=== PATIENT | female | born 1995 | race Caucasian/White ===

== ENCOUNTER 2019-05-05 21:44 | Inpatient (IN) | payer BC ==
[2019-05-05] MEDS ORDERED: HYDROcodone/Acetaminophen 5/325 mg Tablet PO PRN ×2 (22:10)
[2019-05-05] MEDS ORDERED: Lactated Ringer's 1,000 ML IV PRN (22:10)
[2019-05-05] MEDS ORDERED: Lidocaine 1% (PF) 30 ML VIAL SC PRN (22:10)
[2019-05-05] MEDS ORDERED: Methylergonovine 0.2 MG/ML VIAL IM PRN (22:10)
[2019-05-05] MEDS ORDERED: Promethazine HCl 25 MG/ML VIAL IM PRN (22:10)
[2019-05-05] MEDS ORDERED: Ondansetron PF 4 MG/2 ML Vial IVP PRN (22:10)
[2019-05-05] MEDS ORDERED: Ibuprofen 800 MG TAB PO PRN (22:10)
[2019-05-05 22:14] VITALS: BMI 24.6
[2019-05-05 22:36] LABS: Hemoglobin 12.7 g/dL (12.0-16.0); Mean Corpuscular HGB CONC 34.1 g/dL (32.0-36.0); Mean Corpuscular Hemoglobin 29.4 pg (27.0-31.0); Mean Corpuscular Volume 86.3 fL (78.0-98.0); Mean Platelet Volume 8.3 fL (7.4-10.4); Platelet Count 219 thou/uL (130-400); RBC Distribution Width 12.2 % (11.5-14.5); Red Blood Cell (RBC) Count 4.31 mill/uL (4.20-5.40); White Blood Cell (WBC) Count 17.2 thou/uL (4.8-10.8)
[2019-05-05 23:14] LABS: Syphilis Antibody Nonreactive (Nonreactive); Syphilis Antibody Index 0.06 S/CO (<1.00 Non-Reactive)
--- NOTE | 2019-05-05 23:27 | PDOC.LDHP ---
Labor and Delivery H&P Chief complaint: contractions HPI: Patient was seen in office today this morning and had memebrane sweep. She had some mild contractions following. they pickup up at 2pm. Around 9pm their house painter came to the house where she was erika every 2-3 minutes. They arrived to the hospital shortly there after. She denies LOF. has had some bloody show. Denies pain when she is not having contractions. Reporting and active fetus. Current gestational age (weeks): 39 (4 days) Due date: 05/08/19 Dating criteria: last menstrual period Grav: 2 Para: 1 OB History Details: in 2017. PCS for indication of failed second stage, OP presentation. macrosomia. post dates. #9lbs. 11oz G2 Current . Past Medical History: Variant of undetermined significance for charcot case tooth. ( Father is affected) Current medications: pre-josiah vitamins Previous surgical history: low tranverse CS Allergies/Adverse Reactions: Allergies Allergy/AdvReac Type Severity Reaction Status Date / Time No Known Allergies Allergy Unverified 06/25/17 11:38 Social history: none - Physical Exam Vital signs reviewed and normal: yes (135bpm baseline. +Accels. no declerations ) General: breathing through contractions Heart: RRR Lungs: nonlabored breathing Abdomen: gravid FHT: category 1 - Vaginal Exam cm dilated: 6 Effacement: 90% Station: -1 - OB Labs Blood type: A RH: positive Antibody Screen: negative HIV: negative RPR: negative HEPSAg: negative 1 hour GCT: unknown (Declined) GBS: negative Urine drug screen: negative Rubella: immune - Assessment L&D Assessment: term patient in labor - Plan Plan: admit to L&D (consulted with Dr. Uribe. he is aware of TOLAC and indication for PCS. Anesthesia was notified as well.)
[2019-05-05 23:50] LABS: HBSAg Index 0.25 S/CO (0-0.99); Hep B Surf Ag Non-Reactive S/CO (NonReactive)
[2019-05-06] MEDS: NS / Oxytocin 40 units/1000ml 1,000 ML IV PRN ×2 (03:05→04:31)
--- NOTE | 2019-05-06 03:19 | PDOC.OPDEL ---
OB Operative/Delivery Note Delivery Dr/Surgeon: Yonathan Bain Pre-Delivery Diagnosis: active labor Procedure/Post Delivery Dx: vaginal delivery after CS Weeks gestation: 39 Anesthesia: none - Findings A Sex: male Weight: 8 lb 9 oz - 1 min: 8 - 5 min: 9 - Additional Findings/Plan Placenta delivered: spontaneous Repaired Obstetrical Laceration: 2nd degree Estimated blood loss: 300mL Compilations/Other Findings: Nuchal cord, tight. OP presentation Post delivery plan: routine recovery
[2019-05-06] MEDS ORDERED: Bisacodyl 10 MG SUPP PR PRN (04:31)
[2019-05-06] MEDS ORDERED: NS / Oxytocin 40 units/1000ml 1,000 ML IV SCH (04:31)
[2019-05-06] MEDS ORDERED: HYDROcodone/Acetaminophen 5/325 mg Tablet PO PRN ×2 (04:31)
[2019-05-06] MEDS ORDERED: Methylergonovine 0.2 MG/ML VIAL IM PRN (04:31)
[2019-05-06] MEDS ORDERED: Milk Of Magnesia 30 ML UDCUP PO PRN (04:31)
[2019-05-06] MEDS ORDERED: Benzocaine-Menthol 82.5 ML CAN TOP PRN (04:31)
[2019-05-06] MEDS: Ferrous Sulfate 325 MG TAB PO SCH ×2 (08:54→17:35)
[2019-05-06] MEDS: Docusate Calcium (SURFAK) 240 MG CAP PO SCH ×2 (08:54→21:27)
[2019-05-06] MEDS: Prenatal Vitamin 1 TAB PO SCH (08:54)
[2019-05-06] MEDS ORDERED: Adacel (T-DAP) 0.5 ML SYRINGE IM ONE (09:00)
[2019-05-06] MEDS: Ibuprofen 800 MG TAB PO SCH ×2 (11:56→21:27)
[2019-05-07] MEDS: Ibuprofen 800 MG TAB PO SCH ×2 (05:26→14:34)
[2019-05-07] MEDS: Ferrous Sulfate 325 MG TAB PO SCH ×2 (07:52→16:30)
[2019-05-07 09:05] VITALS: BP 103/59; TEMP 97.9
[2019-05-07] MEDS: Prenatal Vitamin 1 TAB PO SCH (09:36)
[2019-05-07] MEDS: Docusate Calcium (SURFAK) 240 MG CAP PO SCH (09:36)
--- NOTE | 2019-05-07 14:39 | PDOC.PP ---
Post Progress Note Post Day #: 1 Subjective: Doing well. Much better at moving around now. PO intake tolerated: yes Flatus: yes Ambulation: yes Vital Signs (12 hours) Temp Pulse Resp BP Pulse Ox 05/07/19 08:00 97.9 F 75 14 103/59 L 98 Weight Weight 148 lb - Physical Examination General: NAD Cardiovascular: no m/r/g, RRR Respiratory: clear to auscultation bilaterally, non-labored breathing Abdominal: + bowel sounds, lochia (minimal) Fundus firm & at: -1 Extremities: negative homans (B) Perineum: Repair intact. edema is less Neurological: no gross focal deficits Psychiatric: A&Ox3 Result Diagrams: 05/05/19 22:25 Additional Labs: Post Labs Blood Type A POSITIVE 05/05/19 22:25 Hep Bs Antigen Non-Reactive S/CO (NonReactive) 05/05/19 22:25 (1) 39 weeks gestation of Code(s): Z3A.39 - 39 WEEKS GESTATION OF Status: Acute (2) Second degree perineal laceration Code(s): O70.1 - SECOND DEGREE PERINEAL LACERATION DURING DELIVERY Status: Acute (3) Vaginal after () Code(s): O34.219 - MATERNAL CARE FOR UNSP TYPE SCAR FROM PREVIOUS DEL Status: Acute - Assessment/Plan A: G2 Now P2 SP at 39 w 5 days. P: Routine care
== END 2019-05-07 17:15 | disposition home or self-care (01) | DRG 807 ==
LOC: L&D/OP 21:44 → L&D 23:22 → 3SW 05-06 06:29
PROVIDERS: ADMIT Obstetrics & Gynecology; ATTEND Obstetrics & Gynecology
PROC: 10E0XZZ Delivery of Products of Conception, External Approach (ICD-10-PCS; principal; 2019-05-06)
PROC: 0KQM0ZZ Repair Perineum Muscle, Open Approach (ICD-10-PCS; 2019-05-06)
DX: O34.219 Maternal care for unspecified type scar from previous cesarean delivery (principal); Z37.0 Single live birth; O69.1XX0 Labor and delivery complicated by cord around neck, with compression, not applicable or unspecified; O70.1 Second degree perineal laceration during delivery; Z3A.39 39 weeks gestation of pregnancy
CPT/HCPCS: 36415; 51701; 85027; 86780; 86850; 86900; 86901; 87340; 99285; J2001